=== PATIENT | female | born 1990 | race Caucasian/White ===

== ENCOUNTER 2017-08-18 06:09 | Outpatient (CLI) | payer OTHER ==
[~2017-08-18 06:09] MED LIST: BACTROBAN OINT22 GM TP; GLYCOTROL CAPS1 EACH; MAXFE CAPLET1 EACH; NIZORAL SHAMPO120 ML; PROTONIX40 MG PO; TRAM1TAB98
== END 2017-08-18 06:29 | disposition home or self-care (01) ==
LOC: LAB 06:09
DX: D50.9 Iron deficiency anemia, unspecified (principal); D70.4 Cyclic neutropenia

== ENCOUNTER 2017-09-08 08:06 | Outpatient (CLI) | payer OTHER | END 2017-09-08 08:10 | disposition home or self-care (01) | LOC: SONOGRAMA 08:06 | DX: N92.0 Excessive and frequent menstruation with regular cycle (principal) ==

== ENCOUNTER 2017-12-14 10:18 | Outpatient (CLI) | payer OTHER | END 2017-12-14 10:22 | disposition home or self-care (01) | LOC: LAB 10:18 | DX: Z11.3 Encounter for screening for infections with a predominantly sexual mode of transmission (principal) ==

== ENCOUNTER → 2018-03-22 06:25 | Outpatient (CLI) | payer OTHER | END | disposition home or self-care (01) | LOC: LAB 06:25 | DX: D64.89 Other specified anemias (principal); Z00.00 Encounter for general adult medical examination without abnormal findings ==

== ENCOUNTER 2018-09-06 12:16 | Outpatient (CLI) | payer OTHER | END 2018-09-06 12:18 | disposition home or self-care (01) | LOC: SONOGRAMA 12:16 | DX: N92.0 Excessive and frequent menstruation with regular cycle (principal); R10.2 Pelvic and perineal pain ==

== ENCOUNTER → 2019-08-01 06:24 | Outpatient (CLI) | payer OTHER | END | disposition home or self-care (01) | LOC: LAB 06:24 | DX: R10.2 Pelvic and perineal pain (principal); D64.89 Other specified anemias; R97.1 Elevated cancer antigen 125 [CA 125] ==

== ENCOUNTER 2020-01-08 18:38 | Emergency (ER) | payer OTHER ==
[~2020-01-08] VITALS: Ht 167.6 cm; Wt 63.5 kg
== END 2020-01-08 20:59 | disposition home or self-care (01) ==
LOC: ER 18:38
DX: B34.9 Viral infection, unspecified (principal); R07.0 Pain in throat

== ENCOUNTER → 2020-03-13 16:23 | Outpatient (CLI) | payer OTHER | END | disposition home or self-care (01) | LOC: PPH VACUNA 16:23 | DX: Z23 Encounter for immunization (principal) ==

== ENCOUNTER → 2020-04-20 | Outpatient (CLI) | payer OTHER | END | disposition home or self-care (01) | LOC: OFIC 805 14:15 | PROVIDERS: ATTEND Otolaryngology Otology & Neurotology | DX: H60.591 Other noninfective acute otitis externa, right ear (principal); H92.01 Otalgia, right ear ==

== ENCOUNTER 2020-05-11 09:18 | Outpatient (CLI) | payer OTHER | END 2020-05-11 14:42 | disposition home or self-care (01) | LOC: OFIC 805 09:18 | PROVIDERS: ATTEND Otolaryngology Otology & Neurotology | DX: B36.9 Superficial mycosis, unspecified (principal); H62.41 Otitis externa in other diseases classified elsewhere, right ear; H61.22 Impacted cerumen, left ear ==

== ENCOUNTER 2020-06-07 15:30 | Outpatient (CLI) | payer OTHER | END 2020-06-07 18:00 | disposition home or self-care (01) | LOC: PPH VACUNA 15:30 | DX: Z23 Encounter for immunization (principal) ==

== ENCOUNTER 2020-07-04 06:12 | Outpatient (CLI) | payer OTHER | END 2020-07-04 06:20 | disposition home or self-care (01) | LOC: LAB 06:12 | PROVIDERS: ATTEND Pediatrics Neonatal-Perinatal Medicine | DX: E05.81 Other thyrotoxicosis with thyrotoxic crisis or storm (principal) ==

== ENCOUNTER 2020-07-11 06:08 | Outpatient (CLI) | payer OTHER | END 2020-07-11 06:13 | disposition home or self-care (01) | LOC: LAB 06:08 | PROVIDERS: ATTEND Pediatrics Neonatal-Perinatal Medicine | DX: D64.89 Other specified anemias (principal) ==

== ENCOUNTER 2020-08-29 15:34 | Outpatient (CLI) | payer OTHER | END 2020-08-29 15:39 | disposition home or self-care (01) | LOC: TOM 15:34 | PROVIDERS: ATTEND Internal Medicine Cardiovascular Disease | DX: G93.89 Other specified disorders of brain (principal) ==

== ENCOUNTER 2020-09-07 06:15 | Outpatient (CLI) | payer OTHER | END 2020-09-07 06:38 | disposition home or self-care (01) | LOC: LAB 06:15 | PROVIDERS: ATTEND Internal Medicine Cardiovascular Disease | DX: I10 Essential (primary) hypertension (principal); E11.9 Type 2 diabetes mellitus without complications; E03.8 Other specified hypothyroidism; E78.2 Mixed hyperlipidemia; E55.9 Vitamin D deficiency, unspecified ==

== ENCOUNTER 2020-09-19 07:58 | Outpatient (CLI) | payer OTHER | END 2020-09-19 07:59 | disposition home or self-care (01) | LOC: NUCLEAR 07:58 | PROVIDERS: ATTEND Internal Medicine Cardiovascular Disease | DX: I10 Essential (primary) hypertension (principal) ==

== ENCOUNTER → 2020-09-25 07:10 | Outpatient (CLI) | payer OTHER | END | disposition home or self-care (01) | LOC: NUCLEAR 07:00 | PROVIDERS: ATTEND Internal Medicine Cardiovascular Disease | DX: G45.9 Transient cerebral ischemic attack, unspecified (principal); I10 Essential (primary) hypertension ==

== ENCOUNTER 2020-10-17 11:58 | Outpatient (CLI) | payer OTHER | END 2020-10-17 13:33 | disposition home or self-care (01) | LOC: OFIC 805 11:58 | PROVIDERS: ATTEND Otolaryngology Otology & Neurotology | DX: H92.02 Otalgia, left ear (principal); H61.22 Impacted cerumen, left ear ==

== ENCOUNTER 2020-10-19 06:11 | Outpatient (CLI) | payer OTHER | END 2020-10-19 06:17 | disposition home or self-care (01) | LOC: LAB 06:11 | PROVIDERS: ATTEND Pediatrics | DX: B36.8 Other specified superficial mycoses (principal) ==

== ENCOUNTER 2021-04-08 08:00 | Outpatient (CLI) | payer OTHER | END 2021-04-08 08:30 | disposition home or self-care (01) | LOC: PPH VACUNA 08:00 | PROVIDERS: ATTEND Emergency Medicine Pediatric Emergency Medicine | DX: Z23 Encounter for immunization (principal) ==

== ENCOUNTER 2021-04-09 10:23 | Outpatient (CLI) | payer OTHER | END 2021-04-09 10:30 | disposition home or self-care (01) | LOC: SONOGRAMA 10:23 → MAMO-SONO 10:30 → SONOGRAMA 10:30 | PROVIDERS: ATTEND Internal Medicine | DX: E04.2 Nontoxic multinodular goiter (principal) ==

== ENCOUNTER → 2021-04-10 07:21 | Outpatient (CLI) | payer OTHER | END | disposition home or self-care (01) | LOC: LAB 07:21 | PROVIDERS: ATTEND Internal Medicine | DX: E03.8 Other specified hypothyroidism (principal); E11.65 Type 2 diabetes mellitus with hyperglycemia; E55.9 Vitamin D deficiency, unspecified ==

== ENCOUNTER 2021-06-20 14:15 | Outpatient (CLI) | payer OTHER | END 2021-06-20 14:19 | disposition home or self-care (01) | LOC: LAB 14:15 | PROVIDERS: ATTEND Preventive Medicine Occupational Medicine | DX: U07.1 COVID-19 (principal) ==

== ENCOUNTER 2021-09-05 06:57 | Outpatient (CLI) | payer OTHER | END 2021-09-05 06:59 | disposition home or self-care (01) | LOC: RAD 06:57 | PROVIDERS: ATTEND Pediatrics | DX: J18.9 Pneumonia, unspecified organism (principal) ==

== ENCOUNTER 2022-01-27 08:15 | Outpatient (CLI) | payer OTHER | END 2022-01-27 08:22 | disposition home or self-care (01) | LOC: LAB 08:15 | PROVIDERS: ATTEND Pediatrics | DX: R68.89 Other general symptoms and signs (principal); R82.90 Unspecified abnormal findings in urine; Z13.228 Encounter for screening for other metabolic disorders ==

== ENCOUNTER → 2022-01-29 | Outpatient (CLI) | payer OTHER | END | disposition home or self-care (01) | LOC: SONOGRAMA 11:03 | PROVIDERS: ATTEND Pediatrics | DX: M54.50 Low back pain, unspecified (principal) ==

== ENCOUNTER 2022-04-10 09:24 | Outpatient (CLI) | payer OTHER | END 2022-04-10 09:27 | disposition home or self-care (01) | LOC: SONOGRAMA 09:24 | PROVIDERS: ATTEND Surgery | DX: N60.11 Diffuse cystic mastopathy of right breast (principal) ==

== ENCOUNTER 2022-04-15 09:30 | Outpatient (CLI) | payer OTHER | END 2022-04-15 09:35 | disposition home or self-care (01) | LOC: PPH VACUNA 09:30 | PROVIDERS: ATTEND Emergency Medicine Pediatric Emergency Medicine | DX: Z23 Encounter for immunization (principal) ==

== ENCOUNTER 2022-11-26 10:12 | Outpatient (CLI) | payer OTHER | END 2022-11-26 10:16 | disposition home or self-care (01) | LOC: SONOGRAMA 10:12 | PROVIDERS: ATTEND Obstetrics & Gynecology Gynecology | DX: N92.0 Excessive and frequent menstruation with regular cycle (principal); R10.2 Pelvic and perineal pain ==

== ENCOUNTER 2022-12-04 06:09 | Outpatient (CLI) | payer OTHER | END 2022-12-04 06:13 | disposition home or self-care (01) | LOC: LAB 06:09 | PROVIDERS: ATTEND Obstetrics & Gynecology Gynecology | DX: R10.2 Pelvic and perineal pain (principal); D64.9 Anemia, unspecified; E03.9 Hypothyroidism, unspecified; E55.9 Vitamin D deficiency, unspecified; E78.5 Hyperlipidemia, unspecified; N39.0 Urinary tract infection, site not specified ==

== ENCOUNTER 2023-02-17 12:42 | Outpatient (CLI) | payer OTHER | END 2023-02-17 12:51 | disposition home or self-care (01) | LOC: LAB 12:42 | PROVIDERS: ATTEND Pediatrics Neonatal-Perinatal Medicine | DX: A49.3 Mycoplasma infection, unspecified site (principal); J11.1 Influenza due to unidentified influenza virus with other respiratory manifestations; Z20.822 Contact with and (suspected) exposure to COVID-19 ==

== ENCOUNTER 2023-03-13 10:27 | Outpatient (CLI) | payer OTHER | END 2023-03-13 10:37 | disposition home or self-care (01) | LOC: PPH VACUNA 10:27 | PROVIDERS: ATTEND Emergency Medicine Pediatric Emergency Medicine | DX: Z23 Encounter for immunization (principal) | CPT/HCPCS: 90686; G0008 ==

== ENCOUNTER 2023-07-09 07:38 | Emergency (ER) | payer OTHER ==
[~2023-07-09] VITALS: Ht 167.6 cm; Wt 64.4 kg
== END 2023-07-09 12:55 | disposition home or self-care (01) ==
LOC: ER 07:40
DX: S01.401A Unspecified open wound of right cheek and temporomandibular area, initial encounter (principal); V43.52XA Car driver injured in collision with other type car in traffic accident, initial encounter; Y93.89 Activity, other specified; Y92.413 State road as the place of occurrence of the external cause

== ENCOUNTER 2023-09-25 14:10 | Outpatient (CLI) | payer OTHER | END 2023-09-25 15:00 | disposition home or self-care (01) | LOC: SONOGRAMA 14:10 | PROVIDERS: ATTEND Obstetrics & Gynecology Gynecology | DX: N92.0 Excessive and frequent menstruation with regular cycle (principal); R10.2 Pelvic and perineal pain; D25.1 Intramural leiomyoma of uterus ==

== ENCOUNTER 2023-12-25 07:35 | Outpatient (CLI) | payer OTHER ==
[2023-12-25 09:04] LABS: PH,URINE 7.5 (5.0-8.0); URINE APPEARANCE Clear; URINE BILIRRUBIN Negative (NEGATIVE); URINE BLOOD Negative; URINE COLOR Yellow; URINE GLUCOSE Negative (NEGATIVE); URINE LEUKOCYTE Trace; URINE NITRATE Negative; URINE PROTEIN Negative (NEGATIVE); URINE UROBILINOGEN 0.2 E.U./dl
[2023-12-25 09:08] LABS: URINE BACTERIA 874.4 uL (0.0-1933); URINE RBC 16.3 uL (0.0-20.8); URINE WBC 6.3 uL (0.0-23.2)
[2023-12-25 09:39] LABS: HEMATOCRIT 38.1 % (36.0-45.00); HEMOGLOBIN 12.5 g/dL (12.0-15.00); MEAN CORPUSCULAR HEMOGLOBIN 24.9 pg (27.00-32.0); MEAN CORPUSCULAR HGB CONC 32.7 g/dl (32.0-36.0); PLATELET COUNT 330 K/uL (150-450); RED CELL DISTRIBUTION WIDTH 21.4 % (11.5-14.5)
[2023-12-25 10:10] LABS: BILIRUBIN TOTAL 0.26 mg/dL (0.3-1.2); CALCIUM 9.5 mg/dL (8.5-10.1); CREATININE SERUM 0.64 mg/dL (0.55-1.02); GFR 106.22; POTASSIUM 4.21 mEq/L (3.5-5.1); TSH 2.18 uIU/mL (0.358-3.74)
[2023-12-25 11:42] LABS: RH POSITIVE
[2023-12-25 15:34] LABS: RAPID PLASMA REAGIN NONREACTIVE BY RPR (NONREACTIVE)
[2023-12-27 11:05] LABS: VARICELLA ZOSTER VIRUS IGG 1576 index (Immune >165)
[2023-12-27 13:09] LABS: RUBELLA IGG 1.69 index (Immune >0.99)
[2023-12-28 13:06] LABS: HEPATITIS C VIRUS ANTIBODY Non Reactive (Non Reactive)
[2023-12-28 17:11] LABS: RUBELLA IGM <20.0 AU/mL (0.0-19.9)
[2023-12-29 05:05] LABS: chla t Negative (Negative); neiss Negative (Negative)
[2023-12-29 13:07] LABS: hgb a2 2.2 % (1.8-3.2); hgb f 0.8 % (0.0-2.0); hgb s 0 % (0.0)
== END 2023-12-25 07:36 | disposition home or self-care (01) ==
LOC: LAB 07:35
PROVIDERS: ATTEND Obstetrics & Gynecology
DX: O09.71 Supervision of high risk pregnancy due to social problems, first trimester (principal)

== ENCOUNTER 2024-04-21 09:38 | Outpatient (CLI) | payer OTHER | END 2024-04-21 10:13 | disposition home or self-care (01) | LOC: NST 09:38 | PROVIDERS: ATTEND Obstetrics & Gynecology | DX: Z34.82 Encounter for supervision of other normal pregnancy, second trimester (principal) ==

== ENCOUNTER 2024-04-24 04:22 | Inpatient (IN) | payer OTHER ==
[~2024-04-24] VITALS: Ht 167.6 cm; Wt 79.4 kg
[2024-04-24 03:26] VITALS: BP 126/77
[2024-04-24] MEDS ORDERED: PRENATAL CAPLE1 EAC1 PO (04:33)
[2024-04-24] MEDS ORDERED: CHILDREN'S ASPI81 MG PO (04:34)
[2024-04-24] MEDS ORDERED: MAGNESIUM SULFATE IN WATER 500 ML IV SCH (04:45)
[2024-04-24] MEDS ORDERED: MAGNESIUM SULFATE IN WATER 4 GM/100 ML PIGGYBACK IV ONE (04:45)
[2024-04-24] MEDS ORDERED: RINGERS SOLUTION,LACTATED 50 ML IV SCH (04:45)
[2024-04-24 05:35] LABS: HEMATOCRIT 39.6 % (36.0-45.00); HEMOGLOBIN 13.3 g/dL (12.0-15.00); MEAN CELL VOLUME 81.5 fL (80.00-100.00); MEAN CORPUSCULAR HEMOGLOBIN 27.4 pg (27.00-32.0); MEAN CORPUSCULAR HGB CONC 33.6 g/dl (32.0-36.0); PLATELET COUNT 259 K/uL (150-450); RED BLOOD COUNT 4.85 M/uL (4.00-6.00)
[2024-04-24 05:53] LABS: INR 0.96; PARTIAL THROMBOPLASTIN TIME 26.1 SECONDS (22.0-34.0); PROTHROMBIN TIME 10.5 SECONDS (9.0-11.5)
[2024-04-24 05:58] LABS: ALBUMIN 3.1 gm/dL (3.4-5.0); BILIRUBIN TOTAL 0.24 mg/dL (0.3-1.2); CALCIUM 9.5 mg/dL (8.5-10.1); CREATININE SERUM 0.42 mg/dL (0.55-1.02); GFR 171.69; GLOBULINA 3.4 G/DL (2.4-3.5); POTASSIUM 3.91 mEq/L (3.5-5.1); TOTAL PROTEIN 6.5 gm/dL (6.4-8.2)
[2024-04-24 07:16] VITALS: BP 118/77
[2024-04-24] MEDS ORDERED: PNV,CALCIUM 72/IRON/FOLIC ACID 1 TAB TABLET PO SCH (09:38)
[2024-04-24] MEDS ORDERED: BETAMETHASONE ACETATE,SOD PHOS 30 MG/5 ML ML IM SCH (09:39)
[2024-04-24 11:14] VITALS: BP 124/76; O2SAT 98
[2024-04-24 15:13] VITALS: BP 133/96
[2024-04-24 19:23] VITALS: BP 127/79
[2024-04-24 23:09] VITALS: BP 113/71
[2024-04-25 03:15] VITALS: BP 118/71
[2024-04-25 06:08] VITALS: BP 126/76; O2SAT 96
[2024-04-25] MEDS ORDERED: NIFEDIPINE 30 MG TAB.SA.OSM PO SCH (09:00)
[2024-04-25 12:19] VITALS: BP 131/77; O2SAT 99
[2024-04-25 15:30] VITALS: BP 123/73
== END 2024-04-25 18:21 | disposition home or self-care (01) | DRG 833 ==
LOC: LDR 04:22
PROVIDERS: ADMIT Obstetrics & Gynecology Maternal & Fetal Medicine; ATTEND Obstetrics & Gynecology Maternal & Fetal Medicine
PROC: BY4CZZZ Ultrasonography of Second Trimester, Single Fetus (ICD-10-PCS; principal; 2024-04-24)
PROC: 4A1HXCZ Monitoring of Products of Conception, Cardiac Rate, External Approach (ICD-10-PCS; 2024-04-24)
DX: O60.02 Preterm labor without delivery, second trimester (principal); Z3A.24 24 weeks gestation of pregnancy; Z20.822 Contact with and (suspected) exposure to COVID-19

== ENCOUNTER 2024-05-02 11:20 | Outpatient (CLI) | payer OTHER ==
[~2024-05-02 11:20] MED LIST changes: +CHILDREN'S ASPI81 MG PO; +PRENATAL CAPLE1 EAC1 PO
== END 2024-05-02 11:30 | disposition home or self-care (01) ==
LOC: PPH VACUNA 11:20
PROVIDERS: ATTEND Emergency Medicine Pediatric Emergency Medicine
DX: Z23 Encounter for immunization (principal)

== ENCOUNTER 2024-05-04 07:37 | Outpatient (CLI) | payer OTHER ==
[2024-05-04 09:30] LABS: ALBUMIN 3.2 gm/dL (3.4-5.0); BILIRUBIN TOTAL 0.32 mg/dL (0.3-1.2); CALCIUM 9.4 mg/dL (8.5-10.1); CREATININE SERUM 0.47 mg/dL (0.55-1.02); GFR 150.79; GLOBULINA 3.8 G/DL (2.4-3.5); POTASSIUM 4.03 mEq/L (3.5-5.1)
== END 2024-05-04 07:44 | disposition home or self-care (01) ==
LOC: LAB 07:37
PROVIDERS: ATTEND Obstetrics & Gynecology
DX: Z34.83 Encounter for supervision of other normal pregnancy, third trimester (principal); O09.72 Supervision of high risk pregnancy due to social problems, second trimester

== ENCOUNTER 2024-05-30 12:57 | Outpatient (CLI) | payer OTHER ==
[2024-05-30 13:16] LABS: HEMATOCRIT 38.4 % (36.0-45.00); HEMOGLOBIN 12.9 g/dL (12.0-15.00); MEAN CELL VOLUME 81.1 fL (80.00-100.00); MEAN CORPUSCULAR HEMOGLOBIN 27.2 pg (27.00-32.0); MEAN CORPUSCULAR HGB CONC 33.5 g/dl (32.0-36.0); PLATELET COUNT 270 K/uL (150-450); RED BLOOD COUNT 4.73 M/uL (4.00-6.00); RED CELL DISTRIBUTION WIDTH 14.1 % (11.5-14.5)
== END 2024-05-30 13:59 | disposition home or self-care (01) ==
LOC: LAB 12:57
PROVIDERS: ATTEND Obstetrics & Gynecology Maternal & Fetal Medicine
DX: D64.9 Anemia, unspecified (principal); Z34.82 Encounter for supervision of other normal pregnancy, second trimester

== ENCOUNTER 2024-06-13 00:13 | Outpatient (CLI) | payer OTHER ==
[2024-06-12 23:34] VITALS: BP 117/79
[~2024-06-13] VITALS: Ht 167.6 cm; Wt 81.6 kg
[2024-06-13] VITALS (7 sets, daily range): BP systolic 115–132; BP diastolic 69–87; O2SAT 97
[2024-06-13] MEDS ORDERED: MAGNESIUM SULFATE IN WATER 500 ML IV SCH (00:30)
[2024-06-13] MEDS ORDERED: RINGERS SOLUTION,LACTATED 1,000 ML IV SCH (00:30)
[2024-06-13 01:05] LABS: URINE APPEARANCE Clear; URINE BILIRRUBIN Negative (NEGATIVE); URINE BLOOD Negative; URINE COLOR Yellow; URINE GLUCOSE Negative (NEGATIVE); URINE KETONE Negative (NEGATIVE); URINE LEUKOCYTE Negative; URINE NITRATE Negative; URINE PROTEIN Negative (NEGATIVE); URINE UROBILINOGEN 0.2 E.U./dl
[2024-06-13 01:08] LABS: URINE BACTERIA 139.4 uL (0.0-1933); URINE EPITHELIAL CELLS 11.8 uL (0.0-38.8); URINE RBC 2.6 uL (0.0-20.8); URINE WBC 10.7 uL (0.0-23.2)
[2024-06-13 01:09] LABS: INR 0.95; PARTIAL THROMBOPLASTIN TIME 27.1 SECONDS (22.0-34.0); PROTHROMBIN TIME 10.4 SECONDS (9.0-11.5)
[2024-06-13 01:13] LABS: URINE CAST 0.58 uL (0.0-1.40)
[2024-06-13 01:16] LABS: ALBUMIN 2.7 gm/dL (3.4-5.0); BILIRUBIN TOTAL 0.26 mg/dL (0.3-1.2); CALCIUM 9.6 mg/dL (8.5-10.1); CREATININE SERUM 0.47 mg/dL (0.55-1.02); GFR 150.79; GLOBULINA 3.6 G/DL (2.4-3.5); TOTAL PROTEIN 6.3 gm/dL (6.4-8.2)
[2024-06-13 01:19] LABS: HEMATOCRIT 38.8 % (36.0-45.00); MEAN CELL VOLUME 80.3 fL (80.00-100.00); MEAN CORPUSCULAR HGB CONC 33.6 g/dl (32.0-36.0); PLATELET COUNT 267 K/uL (150-450); RED BLOOD COUNT 4.83 M/uL (4.00-6.00)
[2024-06-14 03:01] VITALS: BP 120/77
[2024-06-14 06:27] VITALS: BP 122/82; O2SAT 97
== END 2024-06-14 08:46 | disposition home or self-care (01) ==
LOC: OBS/DEL 00:13 → LDR 00:13 → OBS/DEL 06-14 08:46 → EDSTATUS 07-07 15:36
PROVIDERS: Obstetrics & Gynecology; ATTEND Obstetrics & Gynecology Maternal & Fetal Medicine
DX: O47.03 False labor before 37 completed weeks of gestation, third trimester (principal); O26.893 Other specified pregnancy related conditions, third trimester; Z3A.31 31 weeks gestation of pregnancy; R10.2 Pelvic and perineal pain; O26.843 Uterine size-date discrepancy, third trimester; O36.8193 Decreased fetal movements, unspecified trimester, fetus 3; O60.03 Preterm labor without delivery, third trimester; O34.13 Maternal care for benign tumor of corpus uteri, third trimester; O09.513 Supervision of elderly primigravida, third trimester; O32.9XX0 Maternal care for malpresentation of fetus, unspecified, not applicable or unspecified

== ENCOUNTER 2024-06-20 09:27 | Outpatient (CLI) | payer OTHER | END 2024-06-20 10:00 | disposition home or self-care (01) | LOC: NST 09:27 | PROVIDERS: ATTEND Obstetrics & Gynecology | DX: Z34.83 Encounter for supervision of other normal pregnancy, third trimester (principal) ==

== ENCOUNTER 2024-07-21 10:44 | Inpatient (IN) | payer OTHER ==
[~2024-07-21] VITALS: Ht 167.6 cm; Wt 2.7 kg
[2024-07-21 11:41] LABS: INR 0.94; PARTIAL THROMBOPLASTIN TIME 26.6 SECONDS (22.0-34.0); PROTHROMBIN TIME 10.3 SECONDS (9.0-11.5)
[2024-07-21 12:34] LABS: ALBUMIN 2.7 gm/dL (3.4-5.0); BILIRUBIN TOTAL 0.27 mg/dL (0.3-1.2); CALCIUM 9.6 mg/dL (8.5-10.1); CREATININE SERUM 0.53 mg/dL (0.55-1.02); GFR 131.27; GLOBULINA 3.7 G/DL (2.4-3.5); POTASSIUM 4.11 mEq/L (3.5-5.1); TOTAL PROTEIN 6.4 gm/dL (6.4-8.2)
[2024-07-27 05:24] VITALS: BP 131/85
[2024-07-27] MEDS ORDERED: OXYTOCIN 10 UNITS/ML VIAL ONE (07:20)
[2024-07-27] MEDS ORDERED: ERYTHROMYCIN BASE OPHT 1GM EACH TUBE OP ONE (07:20)
[2024-07-27] MEDS ORDERED: RINGERS SOLUTION,LACTATED 1,000 ML IV SCH (07:45)
[2024-07-27] MEDS ORDERED: MORPHINE SULFATE 4 MG/ML CARTRIDGE IV PRN (07:45)
[2024-07-27] MEDS ORDERED: OXYTOCIN 1,000 ML IV ONE (07:45)
[2024-07-27] MEDS ORDERED: CEFAZOLIN SODIUM 1,000 MG VIAL ONE (07:45)
[2024-07-27] MEDS ORDERED: DOCUSATE SODIUM 100MG CAP PO SCH (09:00)
[2024-07-27] MEDS ORDERED: SIMETHICONE 125 MG CAPSULE PO SCH (09:00)
[2024-07-27] MEDS ORDERED: GABAPENTIN 300 MG CAPSULE PO SCH (09:00)
[2024-07-27] MEDS ORDERED: ACETAMINOPHEN 500 MG GEL..CAP PO SCH (12:00)
[2024-07-27] MEDS ORDERED: ONDANSETRON HCL 2 MG/ML VIAL IV SCH (12:00)
[2024-07-27] MEDS ORDERED: KETOROLAC TROMETHAMINE 30 MG VIAL IV SCH (12:00)
[2024-07-27 12:13] VITALS: BP 140/80
[2024-07-27 16:58] VITALS: BP 135/80
[2024-07-27 20:00] VITALS: BP 128/79
[2024-07-28 00:05] VITALS: BP 130/81
[2024-07-28 04:58] VITALS: BP 125/73
[2024-07-28 06:11] LABS: HEMATOCRIT 32.5 % (36.0-45.00); HEMOGLOBIN 10.7 g/dL (12.0-15.00); MEAN CELL VOLUME 81.3 fL (80.00-100.00); MEAN CORPUSCULAR HEMOGLOBIN 26.8 pg (27.00-32.0); PLATELET COUNT 219 K/uL (150-450); RED BLOOD COUNT 3.99 M/uL (4.00-6.00); RED CELL DISTRIBUTION WIDTH 14.7 % (11.5-14.5)
[2024-07-28] MEDS ORDERED: OxyCODONE HCL 5 MG TABLET (ROXICODONE) PO PRN (08:00)
[2024-07-28] MEDS ORDERED: KETOROLAC TROMETHAMINE 10 MG TABLET PO SCH (08:00)
[2024-07-28 08:19] VITALS: BP 136/84
[2024-07-28 16:18] VITALS: BP 135/65
[2024-07-29] VITALS: BP 127/72
[2024-07-29 08:27] VITALS: BP 108/68
== END 2024-07-29 10:32 | disposition home or self-care (01) | DRG 788 ==
LOC: O/R 07-27 05:00 → LDR 07-27 10:19 → OB/GYN 07-27 10:32 → LDR 07-27 11:45 → OB/GYN 07-29 10:32
PROVIDERS: Obstetrics & Gynecology; ADMIT Obstetrics & Gynecology; ATTEND Obstetrics & Gynecology
PROC: 4A1HXCZ Monitoring of Products of Conception, Cardiac Rate, External Approach (ICD-10-PCS; 2024-07-27)
PROC: 10D00Z1 Extraction of Products of Conception, Low, Open Approach (ICD-10-PCS; principal; 2024-07-27 11:45)
DX: O34.29 Maternal care due to uterine scar from other previous surgery (principal); Z3A.37 37 weeks gestation of pregnancy; Z37.0 Single live birth

== ENCOUNTER → 2024-10-26 07:03 | Outpatient (CLI) | payer OTHER ==
[2024-10-26 07:49] LABS: HEMATOCRIT 38.5 % (36.0-45.00); HEMOGLOBIN 12.8 g/dL (12.0-15.00); MEAN CELL VOLUME 79.2 fL (80.00-100.00); MEAN CORPUSCULAR HEMOGLOBIN 26.4 pg (27.00-32.0); MEAN CORPUSCULAR HGB CONC 33.3 g/dl (32.0-36.0); PLATELET COUNT 319 K/uL (150-450); RED BLOOD COUNT 4.86 M/uL (4.00-6.00); RED CELL DISTRIBUTION WIDTH 15.2 % (11.5-14.5)
[2024-10-26 08:44] LABS: ALBUMIN 3.9 gm/dL (3.4-5.0); BILIRUBIN TOTAL 0.29 mg/dL (0.3-1.2); CALCIUM 9.2 mg/dL (8.5-10.1); CREATININE SERUM 0.64 mg/dL (0.55-1.02); GFR 105.6; GLOBULINA 3.7 G/DL (2.4-3.5); POTASSIUM 4.15 mEq/L (3.5-5.1); T4 TOTAL 4.21 UG/DL (4.8-13.9); TOTAL PROTEIN 7.6 gm/dL (6.4-8.2); TSH 1.43 uIU/mL (0.358-3.74)
[2024-10-27 23:10] LABS: chla t Negative (Negative); neiss Negative (Negative)
== END | disposition home or self-care (01) ==
LOC: LAB 07:03
DX: E16.2 Hypoglycemia, unspecified (principal); D64.9 Anemia, unspecified; E78.5 Hyperlipidemia, unspecified; R53.83 Other fatigue; Z12.5 Encounter for screening for malignant neoplasm of prostate; Z12.11 Encounter for screening for malignant neoplasm of colon

== ENCOUNTER 2025-03-17 13:11 | Outpatient (CLI) | payer OTHER ==
[2025-03-17 13:46] LABS: BASO % 0.5 % (0.1-1.2); EOS # 0.04 (0.04-0.54); EOS % 0.6 % (0.7-7.0); LYMPH # 2.15 (1.18-3.74); LYMPH % 33.9 % (19.3-53.1); MEAN PLATELET VOLUME 9.70 fl (9.4-12.4); MONO # 0.41 (0.24-0.82); MONO % 6.5 % (4.7-12.5); NEUT # 3.71 (1.56-6.13); NEUT % 58.3 % (34.0-71.1); RED CELL DISTRIBUTION WIDTH 14.1 % (11.6-14.4)
== END 2025-03-17 13:16 | disposition home or self-care (01) ==
LOC: LAB 13:11
DX: B34.9 Viral infection, unspecified (principal)

== ENCOUNTER 2025-04-27 14:05 | Outpatient (CLI) | payer OTHER | END 2025-04-27 14:15 | disposition home or self-care (01) | LOC: PPH VACUNA 14:05 | PROVIDERS: ATTEND Emergency Medicine Pediatric Emergency Medicine | DX: Z23 Encounter for immunization (principal) ==